=== PATIENT | male | born 1955 | race Caucasian/White ===

== ENCOUNTER 2016-11-27 14:35 | Emergency (ER) | payer OTHER ==
--- NOTE | ~2016-11-27 | CR108 ---
[facility]. [facility] A Service of [facility] [place] RADIOLOGY TEXT RESULTS PATIENT: KG ALEXANDER LOCATION: SED : 57 UNIT #: [id number] AGE: [address]: Flory Weathers APRN SEX: M ORDER DR: [id number] [place] [id number] MR#: [id number] #: [id number] NAME: KG ALEXANDER. : 1955 SEX: M STUDY DATE/TIME: 11/27/2016 13:50 UNIT: SED ROOM: STUDY DESCRIPTION: CR Finger 2 View 2nd Lt Attending Physician: Flory Weathers A.P.R.N. Ordering Physician: Flory Weathers A.P.R.N. Primary Care Physician: Cristian Dutta M.D. MEDICAL IMAGING REPORT This report is preliminary unless electronic signature is present. EXAM Left second digit series 11/27/2016 INDICATIONS Laceration with a table saw today, laceration to the second digit. TECHNIQUE 3 views of the second digit were performed. No comparisons. FINDINGS For reference the second digit on this study refers to the middle finger of the left hand. There is a laceration injury involving the volar aspect of the distal phalanx soft tissue. There is soft tissue swelling but no underlying fracture or retained opaque foreign body. DIP joint preserved. The examination is otherwise negative. IMPRESSION 1. Soft tissue laceration and swelling involving the volar aspect of the distal soft tissues of the middle finger left hand. Dictated by... Ramón Packer M.D. THIS IS AN ELECTRONICALLY VERIFIED REPORT Ramón Packer M.D. at 11/28/2016 8:10 AM BERT/any TD: 11/27/2016 15:46 JOB #: [id number] MEDICAL IMAGING REPORT Page 1 of 1
--- NOTE | ~2016-11-27 | EKG ---
PATIENT: KG ALEXANDER UNIT #: [id number] Ventricular Rate: 46 BPM Atrial Rate: 46 BPM P-R Interval: 160 ms QRS Duration: 112 ms Q-T Interval: 448 ms QTC Calculation(Bezet): 392 ms P [place]: 34 degrees Calculated R [place]: -5 degrees Calculated T [place]: 7 degrees Diagnosis Line: Marked sinus bradycardia Diagnosis Line: Otherwise normal ECG Diagnosis Line: When compared with ECG of 08-DEC-2014 08:29, Diagnosis Line: No significant change was found Diagnosis Line: Confirmed by JACK BUCK MD ([id number]) on 11/28/2016 Diagnosis Line: 2:48:25 PM INTERPRETING MD: CIELO GRIMES
[~2016-11-27 14:35] MED LIST: ALBUTEROL MININEB INH; ASTELIN137 MCG INH; CARAFATE GT; CARVEDILOL12.5 MG PO; CIPRO PO; COREG PO; DELSYM30 MG/5 ML PO; DIOVAN PO; FAMOTIDINE PO; FLAGYL GT; FLAGYL PO; FLOMAX0.4 M1 PO; FLONASE16 GM; FLUTICASONE NASAL; KCL GT; LISINOPRIL PO; LISINOPRIL10 MG PO; LORATADINE PO; LORTAB 5/500 TA1 TA1 PO; LORTAB 5/500 TA1 TA2 PO; NAPROSYN500 MG PO; NORVASC PO; PHENERGAN PO; PHENERGAN25 MG PO; PRAVASTATIN SOD40 MG PO; PREDNISONE PO; PRILOSEC GT; RANITIDINE PO; REGLAN PO; ROBITUSSIN A-C S5 ML PO; TUSSIONEX PENN473 ML PO; ZANTAC150 M1 PO; ZITHROMAX PO; ZOCOR PO
[2016-11-27 16:28] LABS: BASOPHIL# 0.1 X10e3 (0-0.3); BASOPHIL% 1.1 % (0-2.5); EOSINOPHIL# 0.3 X10e3 (0-0.7); EOSINOPHIL% 5.6 % (0.0-7.0); HEMATOCRIT 43.2 % (38.0-50.0); LYMPHOCYTE# 1.4 X10e3 (1.0-3.5); MEAN CELL VOLUME 93.9 FL (83-96); MEAN CORPUSCULAR HEMOGLOBIN 32.5 PG (28-34); MEAN CORPUSCULAR HGB CONC 34.6 g/dL (30-36); MEAN PLATELET VOLUME 8.1 FL (6.5-11.5); MONOCYTE# 0.4 X10e3 (0-1.0); MONOCYTE% 7.8 % (3.0-12.0); NEUTROPHIL% 58.5 % (40-75); PLATELET COUNT 173 X10e3 (140-420); RED CELL DISTRIBUTION WIDTH 12.9 % (11.0-15.5); WHITE BLOOD COUNT 5.1 X10e3 (4.0-10.5)
[2016-11-27 16:33] LABS: POC - CKMB 1.2 ng/mL (0.0-7.9); POC - TROPONIN <0.05 ng/mL (<=0.05)
[2016-11-27 16:50] LABS: ALBUMIN SERUM 3.7 g/dL (3.5-5.0); BILIRUBIN,TOTAL 0.7 mg/dL (0.2-2.0); BUN/CREATININE RATIO 13.63; CALCIUM SERUM 8.3 mg/dL (8.4-10.2); CREATININE SERUM 1.1 mg/dL (0.6-1.4); GLOM FILT RATE Estimated 72.6 mL/min (>60); POTASSIUM 3.8 mmol/L (3.5-5.1); PROTEIN TOTAL SERUM 6.2 g/dL (6.0-8.3)
[2016-11-27 16:54] LABS: DIFF IND NO
== END 2016-11-27 17:08 | disposition home or self-care (01) ==
LOC: SED 14:35
PROVIDERS: Nurse Practitioner
DX: S61.213A Laceration without foreign body of left middle finger without damage to nail, initial encounter (principal); R00.1 Bradycardia, unspecified; Z23 Encounter for immunization; I10 Essential (primary) hypertension; E78.00 Pure hypercholesterolemia, unspecified; K21.9 Gastro-esophageal reflux disease without esophagitis; W31.2XXA Contact with powered woodworking and forming machines, initial encounter; Y92.009 Unspecified place in unspecified non-institutional (private) residence as the place of occurrence of the external cause
CPT/HCPCS: 12001; 73140; 80053; 82553; 84484; 85025; 90471; 90715; 93005; 99283